=== PATIENT | male | born 1995 | race Caucasian/White ===

== ENCOUNTER 2017-02-07 21:39 | Emergency (ER) | payer SELFPAY ==
[~2017-02-07] VITALS: Ht 170.2 cm; Wt 76.4 kg
[~2017-02-07 21:39] MED LIST: CYCL-36 PO; HYDR-3533 PO
[2017-02-07 21:43] VITALS: BP 130/79; PULSE 107; RESP 22; TEMP 98.8; O2SAT 96
[2017-02-07] MEDS ORDERED: SODIUM CHLOR 0.9% 1000 ML INJ 1,000 ML IV ONE (21:49)
--- NOTE | 2017-02-07 21:54 | PD ---
Data Data Last Documented VS Vital Signs Date Time Temp Pulse Resp B/P Pulse Ox O2 Delivery O2 Flow Rate FiO2 02/08/17 01:55 95 Nasal Cannula 02/07/17 21:43 98.8 107 22 130/79 Orders Electrocardiogram (02/07/17 21:49) Basic Metabolic Panel (Bmp) (02/07/17 21:49) Complete Blood Count With Diff (02/07/17 21:49) Iv Access Insert/Monitor (02/07/17 21:49) Ecg Monitoring (02/07/17 21:49) Oximetry (02/07/17 21:49) Sodium Chloride 0.9% Flush (Ns Flush) (02/07/17 22:00) Sodium Chlor 0.9% 1000 Ml Inj (Ns 1000 M (02/07/17 21:49) Drug Screen, Random Urine (02/07/17 21:49) Chest, Single Ap (02/07/17 ) Labs Laboratory Tests Test 02/07/17 21:50 White Blood Count 5.7 TH/MM3 Red Blood Count 4.37 MIL/MM3 Hemoglobin 13.7 GM/DL Hematocrit 40.5 % Mean Corpuscular Volume 92.8 FL Mean Corpuscular Hemoglobin 31.4 PG Mean Corpuscular Hemoglobin 33.9 % Concent Red Cell Distribution Width 14.8 % Platelet Count 162 TH/MM3 Mean Platelet Volume 8.6 FL Neutrophils (%) (Auto) 57.1 % Lymphocytes (%) (Auto) 33.3 % Monocytes (%) (Auto) 7.5 % Eosinophils (%) (Auto) 1.8 % Basophils (%) (Auto) 0.3 % Neutrophils # (Auto) 3.3 TH/MM3 Lymphocytes # (Auto) 1.9 TH/MM3 Monocytes # (Auto) 0.4 TH/MM3 Eosinophils # (Auto) 0.1 TH/MM3 Basophils # (Auto) 0.0 TH/MM3 CBC Comment DIFF FINAL Differential Comment Sodium Level 140 MEQ/L Potassium Level 5.3 MEQ/L Chloride Level 107 MEQ/L Carbon Dioxide Level 27.1 MEQ/L Anion Gap 6 MEQ/L Blood Urea Nitrogen 15 MG/DL Creatinine 1.12 MG/DL Estimat Glomerular Filtration 83 ML/MIN Rate Random Glucose 187 MG/DL Calcium Level 8.2 MG/DL MDM Supervised Visit with JODY: Yes Narrative Course I, Dr. Mitchell, have reviewed the advance practice practitioner's documentation and am in agreement, met with the patient face to face, made the diagnosis, and the medical decision making was done by me. *My assessment and Findings: Patient sleeping soundly on my examination, several hours later his tachycardia resolved. At 04 45 patient's clinically sober stable for discharge. Diagnosis Primary Impression: Accidental overdose Qualified Code: T50.901A - Accidental overdose, initial encounter Disposition: DISCHARGE HOME Condition: Stable Constantin Mitchell MD Feb 07, 2017 21:54
--- NOTE | 2017-02-07 21:54 | PD ---
HPI Chief Complaint: OD/ Ingestion Time Seen by Provider: 21:51 Travel History International Travel<30 days: No Contact w/Intl Traveler<30days: No Traveled to known affect area: No History of Present Illness HPI 21-year-old male presents to the ED by EMS for evaluation after accidental heroin overdose. Patient states that he injected into his left hand. Per EMS report he was riding in a car with 2 females who pulled over and called 911. When EMS arrived the patient was GCS 3 and not breathing. He received 4mg Narcan in the field and began to breathe and respond. On presentation the patient is alert and oriented. He complains of dull headache and feeling cold. He denies SI, states that he was injecting to get high. He endorses one previous episode of overdose which she states was "a few weeks ago." He endorses smoking cigarettes but denies other illicit drug or alcohol use. He denies medical problems and takes no daily medications. NKDA. PFSH Past Medical History Medical History: Denies Significant Hx Influenza Vaccination: No Past Surgical History Surgical History: No Previous Surgery Social History Alcohol Use: Yes (SOCIAL) Tobacco Use: Yes (1 PPD) Substance Use: Yes (MARIJUANA, HEROIN ) Allergies-Medications (Allergen,Severity, Reaction): Coded Allergies: No Known Allergies (Unverified , 02/07/17) Reported Meds & Prescriptions Reported Meds & Active Scripts Active Review of Systems Except as stated in HPI: all other systems reviewed are Neg Physical Exam Narrative GENERAL: Well-nourished, well-developed shivering white male in no acute distress. Alert, oriented 4. SKIN: Focused skin assessment warm/dry. HEAD: Normocephalic. EYES: No scleral icterus. No injection or drainage. Peoples pinpoint bilaterally. NECK: Supple, trachea midline. No JVD or lymphadenopathy. CARDIOVASCULAR: Regular rate and rhythm without murmurs, gallops, or rubs. RESPIRATORY: Breath sounds clear and equal bilaterally. No accessory muscle use. GASTROINTESTINAL: Abdomen soft, non-tender, nondistended. Active bowel sounds MUSCULOSKELETAL: No cyanosis, or edema. BACK: Nontender without obvious deformity. No CVA tenderness. Data Data Last Documented VS Vital Signs Date Time Temp Pulse Resp B/P Pulse Ox O2 Delivery O2 Flow Rate FiO2 02/07/17 21:43 98.8 107 22 130/79 96 Orders Electrocardiogram (02/07/17 21:49) Basic Metabolic Panel (Bmp) (02/07/17 21:49) Complete Blood Count With Diff (02/07/17 21:49) Iv Access Insert/Monitor (02/07/17 21:49) Ecg Monitoring (02/07/17 21:49) Oximetry (02/07/17 21:49) Sodium Chloride 0.9% Flush (Ns Flush) (02/07/17 22:00) Sodium Chlor 0.9% 1000 Ml Inj (Ns 1000 M (02/07/17 21:49) Drug Screen, Random Urine (02/07/17 21:49) Chest, Single Ap (02/07/17 ) Labs Laboratory Tests Test 02/07/17 21:50 White Blood Count 5.7 TH/MM3 Red Blood Count 4.37 MIL/MM3 Hemoglobin 13.7 GM/DL Hematocrit 40.5 % Mean Corpuscular Volume 92.8 FL Mean Corpuscular Hemoglobin 31.4 PG Mean Corpuscular Hemoglobin 33.9 % Concent Red Cell Distribution Width 14.8 % Platelet Count 162 TH/MM3 Mean Platelet Volume 8.6 FL Neutrophils (%) (Auto) 57.1 % Lymphocytes (%) (Auto) 33.3 % Monocytes (%) (Auto) 7.5 % Eosinophils (%) (Auto) 1.8 % Basophils (%) (Auto) 0.3 % Neutrophils # (Auto) 3.3 TH/MM3 Lymphocytes # (Auto) 1.9 TH/MM3 Monocytes # (Auto) 0.4 TH/MM3 Eosinophils # (Auto) 0.1 TH/MM3 Basophils # (Auto) 0.0 TH/MM3 CBC Comment DIFF FINAL Differential Comment Sodium Level 140 MEQ/L Potassium Level 5.3 MEQ/L Chloride Level 107 MEQ/L Carbon Dioxide Level 27.1 MEQ/L Anion Gap 6 MEQ/L Blood Urea Nitrogen 15 MG/DL Creatinine 1.12 MG/DL Estimat Glomerular Filtration 83 ML/MIN Rate Random Glucose 187 MG/DL Calcium Level 8.2 MG/DL MDM Medical Decision Making Medical Screen Exam Complete: Yes Emergency Medical Condition: Yes Differential Diagnosis accidental overdose versus acute substance intoxication versus substance abuse versus electrolyte abnormality versus other Narrative Course 21-year-old male presents to the ED by EMS for evaluation after accidental heroin overdose. Patient states that he injected into his left hand. Per EMS report he was riding in a car with 2 females who pulled over and called 911. When EMS arrived the patient was GCS 3 and not breathing. He received 4mg Narcan in the field and began to breathe and respond. On presentation the patient is alert and oriented. He complains of dull headache and feeling cold. He denies SI, states that he was injecting to get high. He endorses one previous episode of overdose which she states was "a few weeks ago." He endorses smoking cigarettes but denies other illicit drug or alcohol use. He denies medical problems and takes no daily medications. NKDA. On physical exam the patient is alert and oriented, tremulous. His breathing is initially a little erratic but this resolved strength course of evaluation. Pupils pinpoint bilaterally. Chest CTA B. Abdomen soft, nontender. No extremity edema. EKG rate 102, sinus tachycardia. Normal axis. No acute ST changes. Reviewed by Dr. Mitchell. Basic lab work, chest x-ray ordered and pending. Plan to observe in the ED. Disposition per Dr. Mitchell. Diagnosis Primary Impression: Accidental overdose Qualified Code: T50.901A - Accidental overdose, initial encounter Referrals: [facility] (Out patient) Additional Instructions: Seek outpatient treatment for your substance abuse problem. Return to the ED for any urgent or emergent medical condition. Disposition: 01 DISCHARGE HOME Condition: Stable Isabel Lau Feb 07, 2017 21:54 Isabel Lau Feb 07, 2017 21:54
[2017-02-07] MEDS ORDERED: SODIUM CHLORIDE 0.9% FLUSH 10 ML FLUSH IVF PRN (22:00)
[2017-02-07 22:09] LABS: AUTOMATED NEUTROPHIL # 3.3 TH/MM3 (1.8-7.7); BASOPHIL % 0.3 % (0.0-2.0); EOSINOPHIL # 0.1 TH/MM3 (0-0.4); EOSINOPHIL % 1.8 % (0.0-4.0); HEMATOCRIT 40.5 % (39.0-51.0); HEMO FLAGS DIFF FINAL; LYMPH % 33.3 % (9.0-44.0); LYMPHOCYTE # 1.9 TH/MM3 (1.0-4.8); MEAN CELL VOLUME 92.8 FL (80.0-100.0); MEAN CORPUSCULAR HEMOGLOBIN 31.4 PG (27.0-34.0); MEAN CORPUSCULAR HGB CONC 33.9 % (32.0-36.0); MONO % 7.5 % (0.0-8.0); NEUT % 57.1 % (16.0-70.0); PLATELET COUNT 162 TH/MM3 (150-450); RED BLOOD COUNT 4.37 MIL/MM3 (4.50-5.90); RED CELL DISTRIBUTION WIDTH 14.8 % (11.6-17.2); WHITE BLOOD COUNT 5.7 TH/MM3 (4.0-11.0)
[2017-02-07 22:30] LABS: BICARBONATE 27.1 MEQ/L (21.0-32.0)
[2017-02-07 22:31] LABS: POTASSIUM 5.3 MEQ/L (3.5-5.1)
--- NOTE | 2017-02-07 23:13 | RADRPT ---
EXAM DATE/TIME: 02/07/2017 22:30 [facility] COMPARISON: No previous studies available for comparison. INDICATIONS : Heroine intoxication. MEDICAL HISTORY : None. SURGICAL HISTORY : None. ENCOUNTER: Initial ACUITY: 1 day PAIN SCORE: 0/10 LOCATION: Bilateral chest FINDINGS: Single AP view of the chest. Mild hazy opacity in the left mid to lower lung. Cardiomediastinal silho uette within normal limits. No evidence of pleural effusion or pneumothorax. CONCLUSION: Mild opacity in the mid to lower left lung. May represent mild asymmetric pulmonary edema or mild consolidation. Andrew Snyder MD on February 07, 2017 at 23:10 Board Certified Radiologist. This report was verified electronically.
[2017-02-08 01:55] VITALS: O2SAT 95
[2017-02-08 05:32] VITALS: BP 166/72
--- NOTE | 2017-02-08 16:23 | EKG ---
Date Performed: 02/07/2017 Time Performed: 22:04:48 PTAGE: 21 years EKG: SINUS TACHYCARDIA ABNORMAL RHYTHM ECG NO PREVIOUS TRACING DOCTOR: Saad Sullivan Interpretating Date/Time 02/08/2017 16:21:33
== END 2017-02-08 05:48 | disposition home or self-care (01) ==
LOC: NEPC 21:39
DX: T40.1X1A Poisoning by heroin, accidental (unintentional), initial encounter (principal); F17.210 Nicotine dependence, cigarettes, uncomplicated; R51 Headache; R00.0 Tachycardia, unspecified
CPT/HCPCS: 71010; 80048; 85025; 93005; 99285; J7030